=== PATIENT | female | born 1945 | race Hispanic/Latino ===

== ENCOUNTER → 2016-07-07 | Day surgery (SDC) | payer OTHER ==
[~2016-07-07] MED LIST: ANTIVERT 25 MG25 M1 PO; ASPIR 8181 MG PO; CYMBALTA60 MG PO; GABAPENTIN TAB600 MG PO; HYDROXYZINE HCL50 M1 PO; HYZAAR 12.5 MG-1 TAB PO; IBUPROFEN600 M1 PO; JANUMET 1000 MG1 TAB PO; LEVEMIR100 U/ML SC; LEVOTHYROXINE0.1 MG PO; MEDROL4 M2 PO; NATURAL IRON65 MG PO; NOVOLOG100 U/ML SC; OXYCODONE5 MG PO; PERCOCET 325 MG1 TA2 PO; PRAVACHOL80 MG PO; TERBINAFINE HCL30 GM TOP; VALIUM5 M1 PO
--- NOTE | 2016-07-07 09:19 | Operative Report ---
Operative/Inv Procedure Report Surgery Date: 07/07/16 Name of Procedure: Cataract extraction lens implantation left eye Pre-Operative Diagnosis: Age-related cataract left eye 20/25 vision 20/60 glare vision Post-Operative Diagnosis: Same Estimated Blood Loss: none Surgeon/Skidway Worker: TIKI AHUMADA,FREDDIE Cabrera Anesthesia: local monitored anesthesi Complications: None Operative/Procedure Note Note: The patient was brought to the operating room standard monitoring equipment was attached the patient was prepped and draped in the usual fashion for intraocular surgery. A lid speculum was placed to retract the lids. The case was begun by making 2 partial-thickness corneal relaxing incisions at 70. A temporal incision with a 2.4 mm keratome. The eye was stabilized with a Ware ring during this incision. 1 mL of non-preserved lidocaine was introduced into the anterior chamber to provide anesthesia. The anterior chamber was then filled and deepened with viscoelastic. A curvilinear capsulorrhexis was achieved using a 30-gauge needle and is a cystotome and capsulorrhexis was finished using a Utrata forceps. A second or paracentesis incision was made temporally with a 1 mm MVR blade. The lens was then hydrodissected with balanced salt solution and found to be rotatable. The lens was emulsified using phacoemulsification and a modified four-quadrant cracking technique. The residual cortical material was removed using automated irrigation and aspiration and as much of the anterior capsular rim was cleaned as well as possible. The posterior capsule was cleaned first with the automated machine on a low setting and then manually with a Justin squeegee. The capsular bag was deepened with viscoelastic. The lens a Technis 1 22.0 Diopter placed into the bag under direct visualization and rotated so that the haptics were at 12 and 6:00. Viscoelastic was then removed from the eye by flushing it out and then by automated irrigation and aspiration. The eye was pressurized to a normal tone. 1/10 of a cc of vancomycin solution was introduced into the anterior chamber to provide antibiotic prophylaxis. The wounds were sealed by hydrating the stroma adjacent to them and the eye was left at a proper tone after the wounds were checked and found not to be leaking. The lid speculum was removed from the orbit. Antibiotic and steroid drops were placed on the eye and then the eye was shielded. Monitoring equipment was removed from the patient and the patient was removed from the operative suite to the holding area. The patient tolerated the procedure well and will be seen in the office tomorrow.
== END ==
LOC: STS 02:00
DX: H25.9 Unspecified age-related cataract (principal); E11.9 Type 2 diabetes mellitus without complications; Z79.4 Long term (current) use of insulin; E03.9 Hypothyroidism, unspecified; I10 Essential (primary) hypertension
CPT/HCPCS: J2250; V2632

== ENCOUNTER 2016-07-10 22:52 | Emergency (ER) | payer OTHER ==
[~2016-07-10] VITALS: Ht 149.9 cm; Wt 68.0 kg
[~2016-07-10 22:52] MED LIST changes: -IBUPROFEN600 M1 PO
[2016-07-10 22:55] VITALS: BP 140/66
--- NOTE | 2016-07-10 23:15 | ED UPPER/LOWER EXTREMITY COMPL ---
History of Present Illness General Chief Complaint: Hand or Wrist Injury Stated Complaint: "MY HAND" LEFT Source: patient Exam Limitations: no limitations Vital Signs & Intake/Output Vital Signs & Intake/Output Vital Signs Date Time Temp Pulse Resp B/P Pulse O2 O2 Flow FiO2 Ox Delivery Rate 07/10 2316 98 Room Air 07/10 2255 97.8 92 18 140/66 96 Room Air ED Intake and Output 07/11 0000 07/10 1200 Intake Total Output Total Balance Patient 150 lb Weight Allergies Coded Allergies: codeine (Mild, STOMACH PAIN/ N/V 08/12/15) Reconcile Medications Aspirin (Ecotrin) 81 MG TABLET.DR 1 TAB PO DAILY HEART HEALTH (Reported) Diazepam (Valium) 5 MG TABLET 1 TAB PO TID muscle spasms DULOXETINE HCL (Cymbalta) 60 MG CAPSULE.DR 1 CAP PO DAILY DEPRESSION ( Reported) FERROUS SULFATE (IRON) 325 MG (65 MG IRON) TABLET 1 TAB PO DAILY SUPPLEMENT ( Reported) Gabapentin (Gabapentin Tab 600MG) 600 MG TABLET 1 TAB PO 4XDAILY LEG PAIN ( Reported) Hydrochlorothiazide/Losartan (Hyzaar 12.5 MG-100 MG) 1 TAB TAB 1 TAB PO DAILY BP (Reported) Hydroxyzine HCl 50 MG TABLET 1 TAB PO TID PRN PRURITUS Ibuprofen 600 MG TABLET 1 TAB PO TID PRN PAIN with food Insulin Aspart, Recombinant (Novolog) 100 U/ML STEFANI 0 UNITS SC AC GLUCOSE CONTROL (Reported) BLOOD SUGAR # OF UNITS < 80 NONE 80-150 NONE 151-200 4 UNITS 201-250 6 UNITS 251-300 8 UNITS 301-350 10 UNITS 351-400 12 UNITS >400 14 UNITS and call Insulin Detemir (Levemir) 100 U/ML STEFANI 40 UNITS SC QHS DIABETES (Reported) Levothyroxine Sodium 100 MCG TABLET 1 TAB PO DAILY THYROID (Reported) Meclizine (Antivert) 12.5 MG TABLET 1 TAB PO PRN VERTIGO (Reported) Metformin Hydrochloride/Sarah (Janumet 1000 MG-50 MG) 1 TAB TAB 1 TAB PO BID DIABETES (Reported) Methylprednisolone. (Medrol) 4 MG TAB.DS.PK 1 DP PO AD dermatitis 6 on day 1 then reduce by one tablet daily until gone OXYCODONE HCL/ACETAMINOPHEN (Percocet 5-325 MG Tablet) 325 MG/5 MG TAB 1-2 TAB PO Q4-6 PRN PRN PAIN Pravastatin Sodium (Pravachol) 80 MG TAB 1 TAB PO DAILY CHOLESTEROL (Reported ) Terbinafine HCl 30 GM CREAM..G. 1 ADELFO TOP BID TINEA Triage Note: PT STATES THAT SHE SLIPPED THIS AM AND HIT HER L HAND ON THE SINK, COMPLAINS OF PAIN AND SWELLING.TOOK TYLENOL AT HOME Triage Nurses Notes Reviewed? yes Onset: Abrupt Duration: hour(s): Timing: single episode today Severity: mild, moderate Pain/Injury Location: Left: 2nd finger. Method of Injury: direct blow, fall Modifying Factors: Improves With: rest. Worsens With: movement. Associated Symptoms: swelling HPI: 70 year-old woman prior good health presents with pain and swelling in the left second metacarpal phalangeal region. She notes that she had a mechanical fall and fell forward. She landed with her left hand outstretched and felt pain in the left second digit area. She notes no other injury no head trauma. She is otherwise well. Past History Travel History Traveled to [place] past 21 day No Medical History Any Pertinent Medical History? 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 No Review of Systems Review of Systems Constitutional: Reports: no symptoms. EENTM: Reports: no symptoms. Respiratory: Reports: no symptoms. Cardiovascular: Reports: no symptoms. Gastrointestinal/Abdominal: Reports: no symptoms. Genitourinary: Reports: no symptoms. Musculoskeletal: Reports: no symptoms. Skin: Reports: no symptoms. Neurological/Psychological: Reports: no symptoms. Hematologic/Endocrine: Reports: no symptoms. Immunological: Reports: no symptoms. All Other Systems: Reviewed and Negative Physical Exam Physical Exam General Appearance: well developed/nourished, mild distress Head: atraumatic Eyes: Bilateral: normal appearance. Ears, Nose, Throat: normal pharynx, normal ENT inspection, hearing grossly normal Neck: normal inspection, supple Cardiovascular/Respiratory: regular rate/rhythm Back: normal inspection Hand Left: swelling, 2nd finger, pain with range of motion in the left second digit. No deformity. Light touch and distal pulses intact. Skin: intact, normal color, warm/dry Lymphatic: no anterior cervical lesa Progress Differential Diagnosis: contusion, fracture, sprain Plan of Care: Orders Procedure Date/time Status XRY-HAND, 3 View LEFT 07/10 2257 Active Diagnostic Imaging: Viewed by Me: Radiology Read. Discussed w/RAD: Radiology Read. Radiology Impression: hand xray... 2nd phalanx fracture... full report below. Comments: PATIENT: DEWEY PEREZ PRESENT AGE: 70 PATIENT ACCOUNT NO: [id number] : 45 LOCATION: [facility] ORDERING PHYSICIAN: ALFREDO BEASLEY DO SERVICE DATE: 07/10/16-2257 EXAM TYPE: RAD - XRY-HAND, LEFT EXAMINATION: 3 views of the left hand CLINICAL INFORMATION: Hand pain and swelling COMPARISON: None available FINDINGS: There is a nondisplaced intra-articular fracture along the ulnar aspect of the proximal second phalanx. No additional acute fractures. No acute subluxations. No elevation of the pronator fat pad. Joint space narrowing involving all the distal interphalangeal joints as well as the proximal fourth interphalangeal joint. IMPRESSION: - There is a nondisplaced intra-articular fracture along the ulnar aspect of the proximal second phalanx. No additional acute fractures. - Osteoarthritis. DICTATED BY: ALFREDO FONTANA MD DATE/TIME DICTATED:07/10/162335 GLOVE CUFFER:RUPESH DATE/TIME TRANSCRIBED:07/10/162335 CONFIDENTIAL, DO NOT COPY WITHOUT APPROPRIATE AUTHORIZATION. <Electronically signed in Other Vendor System> SIGNED BY: ALFREDO FONTANA MD 07/10/16 5920 Departure Departure Disposition: HOME OR SELF CARE Condition: Stable Clinical Impression Primary Impression: Finger fracture Referrals: CROW SAWYER MD (PCP/Family) Departure Forms: Customer Survey General Discharge Information Prescriptions: Current Visit Scripts Ibuprofen 1 TAB PO TID PRN PAIN #30 TAB with food Comments splint placed on affected finger by . Procedures Splinting Location: 2nd left finger Manual Alignment Performed: No Pre-Made Type: metal Splint: finger Splint Applied By: splint applied by me Pre-Proc Neuro Vasc Exam: normal Post-Proc Neuro Vasc Exam: normal
--- NOTE | 2016-07-10 23:47 | RADIOLOGY REPORT ---
EXAMINATION: 3 views of the left hand CLINICAL INFORMATION: Hand pain and swelling COMPARISON: None available FINDINGS: There is a nondisplaced intra-articular fracture along the ulnar aspect of the proximal second phalanx. No additional acute fractures. No acute subluxations. No elevation of the pronator fat pad. Joint space narrowing involving all the distal interphalangeal joints as well as the proximal fourth interphalangeal joint. IMPRESSION: - There is a nondisplaced intra-articular fracture along the ulnar aspect of the proximal second phalanx. No additional acute fractures. - Osteoarthritis.
[2016-07-11] MEDS ORDERED: IBUPROFEN600 M1 PO (00:17)
== END 2016-07-11 00:29 ==
LOC: ERH 22:52
DX: S62.611A Displaced fracture of proximal phalanx of left index finger, initial encounter for closed fracture (principal); W22.8XXA Striking against or struck by other objects, initial encounter
CPT/HCPCS: 73130-LT

== ENCOUNTER 2017-12-09 21:29 | Observation (INO) | payer OTHER ==
[~2017-12-09] VITALS: Ht 162.6 cm; Wt 73.1 kg
[~2017-12-09 21:29] MED LIST changes: +IBUPROFEN600 M1 PO; +TRAMADOL HCL50 M1 PO
--- NOTE | 2017-12-09 21:54 | ED CARDIAC/CP/PALPITATIONS ---
History of Present Illness General Chief Complaint: Lower Extremity Problems Stated Complaint: PAIN AND SWELLING IN LEGS AND FEET X3 DAYS Source: patient Exam Limitations: no limitations Vital Signs & Intake/Output Vital Signs & Intake/Output Vital Signs Date Time Temp Pulse Resp B/P B/P Pulse O2 O2 Flow FiO2 Mean Ox Delivery Rate 12/10 0107 97 18 124/56 97 Nasal 2.0L Cannula 12/10 0102 112 155/72 12/09 2352 98.2 114 20 155/72 96 Room Air 12/09 2255 118 18 145/69 97 Room Air 12/09 2245 116 18 153/70 98 Room Air 12/09 2237 98.3 112 18 138/66 98 Room Air 12/09 2159 98 Room Air 12/09 2158 111 16 140/71 94 Room Air 12/09 2135 98.3 121 20 165/77 96 Room Air ED Intake and Output 12/10 0000 12/09 1200 Intake Total Output Total Balance Patient 230 lb Weight Weight Reported by Patient Measurement Method Allergies Coded Allergies: codeine (Mild, STOMACH PAIN/ N/V 04/06/17) Triage Note: PT HERE WITH C/O INCREASING BLOOD SUGARS, LLE SWEELING AND PALPATATIONS. Triage Nurses Notes Reviewed? yes Onset: Gradual Duration: constant Timing: recent history Location: substernal Radiation: no radiation HPI: Patient is a 72-year-old female with past medical history of cervical spine fusion, diabetes, hypothyroidism, hypertension, hyperlipidemia patient's surgery assistant Dr. Winters who presents emergency room with a 24-hour history of gradual onset of bilateral leg swelling shortness of breath dyspnea on exertion chest pressure dizziness mild nausea Patient is also complaining of yellow productive cough Patient is also complaining of chest heaviness (Timo Feng) Reconcile Medications Amlodipine Besylate 10 MG TABLET 1 TAB PO DAILY HTN (Reported) Aspirin (Aspirin*) 81 MG TAB.CHEW 1 TAB PO DAILY Heart (Reported) Atorvastatin Calcium 20 MG TABLET 1 TAB PO DAILY HLD (Reported) Calcium Crb&Cit/D3/Min34/Mary (Citracal + Bone Density Tablet) 300 MG-200 UNIT- 13.5 MG TABLET 1 TAB PO DAILY SUPPLEMENT (Reported) Cyanocobalamin (Vitamin B-12) 1,000 MCG TABLET 1 TAB PO DAILY SUPPLEMENT ( Reported) Duloxetine HCl 60 [address]SULE.DR Ramirez CAP PO DAILY Depression (Reported) Ferrous Sulfate 325 MG (65 MG IRON) TABLET 1 TAB PO DAILY SUPPLEMENT ( Reported) Fish Oil/Borage/Flax/Om3,6,9#1 ([place] 3-6-9 1,200 MG Softgel) 1,200 MG CAPSULE 1 CAP PO DAILY SUPPLEMENT (Reported) Furosemide 20 MG TABLET 1 TAB PO DAILY SWELLING (Reported) Insulin Detemir (Levemir) (Unknown Strength) VIAL (Unknown Dose) SC BID IDDM (Reported) Insulin Lispro (Humalog Kwikpen U-100) (Unknown Strength) INSULN.PEN (Unknown Dose) SC TIDAC IDDM (Reported) Lactobacillus Acidophilus (Probiotic) 10 BILLION CELL CAPSULE 1 CAP PO TID SUPPLEMENT (Reported) Levothyroxine Sodium (Synthroid) 100 MCG TABLET 1 TAB PO DAILY HYPOTHYROIDISM (Reported) Linaclotide (Linzess) 145 MCG CAPSULE 1 CAP PO DAILY GI (Reported) Magnesium Oxide (Magnesium) 400 MG CAPSULE 1 CAP PO DAILY SUPPLEMENT ( Reported) Meclizine HCl 25 MG TABLET 1 TAB PO BID VERTIGO (Reported) Melatonin 5 MG TABLET 1 TAB PO QPM SLEEP (Reported) Nystatin 100,000 UNIT/GRAM POWDER 1 ADELFO TOP BID RASH (Reported) Potassium Chloride 20 MEQ TAB.ER.PRT 1 TAB PO DAILY SUPPLEMENT (Reported) Pregabalin (Lyrica) 100 MG CAPSULE 1 CAP PO BID Neuropathy (Reported) Ranitidine HCl 300 MG TABLET 1 TAB PO QPM GERD (Reported) Sitagliptin Phos/Metformin HCl (Janumet 50-1,000 MG Tablet) 50 MG-1,000 MG TABLET 1 TAB PO BID IDDM (Reported) (Jose Huerta MD) Past History Travel History Traveled to [place] past 21 day No Medical History Any Pertinent Medical History? see below for history Neurological: migraine, vertigo EENT: NONE Cardiovascular: hypertension Respiratory: obstructive sleep apnea Gastrointestinal: NONE Hepatic: NONE Renal: NONE Musculoskeletal: chronic back pain, disk herniation, CERVICAL SPINE SPURS Psychiatric: depression Endocrine: DIABETES Blood Disorders: NONE Cancer(s): NONE MANAGER SYSTEM/Reproductive: Surgical History Surgical History: discectomy and fusion Psychosocial History Who do you live with Spouse Services at Home None What is your primary language Macedonian Tobacco Use: Never used ETOH Use: denies use Illicit Drug Use: denies illicit drug use Family History Family History, If Any: Relation not specified for: No pertinent family history Hx Contributory? No (Timo Feng) Review of Systems Review of Systems Constitutional: Reports: no symptoms. EENTM: Reports: no symptoms. Respiratory: Reports: see HPI. Cardiovascular: Reports: see HPI. GI: Reports: no symptoms. Genitourinary: Reports: no symptoms. Musculoskeletal: Reports: no symptoms. Skin: Reports: no symptoms. Neurological/Psychological: Reports: no symptoms. Hematologic/Endocrine: Reports: no symptoms. Immunologic/Allergic: Reports: no symptoms. All Other Systems: Reviewed and Negative (Timo Feng) Physical Exam Physical Exam General Appearance: no apparent distress, alert, comfortable Head: atraumatic Eyes: Bilateral: normal appearance. Ears, Nose, Throat: hearing grossly normal Neck: normal inspection Respiratory: normal breath sounds, chest non-tender, no respiratory distress Cardiovascular: tachycardia Peripheral Pulses: 2+ dorsalis pedis (R), 2+ dorsalis pedis (L) Gastrointestinal: normal bowel sounds, soft, tenderness Neurologic/Psych: no motor/sensory deficits, awake, alert Skin: intact, normal color, warm/dry Comments: Bilateral lower extremity nonpitting +1 edema with gastrocnemius point tenderness Core Measures ACS in differential dx? Yes CVA/TIA Diagnosis No Sepsis Present: No Sepsis Focused Exam Completed? No (Timo Feng) Progress Differential Diagnosis: AMI, aortic dissection, atrial fibrillation, cholecystitis, CHF/pulm edema, costochondritis, hyperkalemia, hypovolemia, hyperthyroid, hyperventilation, intracranial hemorrhage, musculoskeletal pain, myocarditis, pancreatitis, pericarditis, pneumonia, pneumothorax, PSVT, pulmonary embolism, PUD/GERD, PVCs/PACs, respiratory failure, rib fracture, sepsis, unstable angina, V-fib/V-Tach, WPW syndrome Plan of Care: Orders Procedure Date/time Status Heart Healthy Diet 12/10 B Active TROPONIN LEVEL 12/10 1000 Active EKG 12/10 1000 Active ECHOCARDIOGRAM 12/10 0800 Active TROPONIN LEVEL 12/10 0400 Active MAGNESIUM 12/10 0400 Active CBC WITHOUT DIFFERENTIAL 12/10 0400 Active BASIC ELECTROLYTES PLUS BUN&CR 12/10 0400 Active EKG 12/10 0400 Active TRC EVALUATION (GEN) 12/10 0232 Active OXYGEN SETUP (GEN) 12/10 0232 Active Pathway - chart 12/10 0232 Active House Staff 12/10 0232 Active Patient Data 12/10 0129 Active OXYGEN SETUP (GEN) 12/10 003 Active Saline Lock 12/[address] in observation 12/10 003 Active Vital Signs 12/10 29 Active Activity/Ambulation 12/10 29 Active Code Status 12/10 29 Active URINALYSIS 12/10 0010 Complete VTE Mechanical Prophylaxis 12/10 UNK Active Telemetry/Medical Insurance Biller 12/09 2152 Active FingerStick- Glucose 12/09 2152 Active THYROID STIMULATING HORMONE 12/09 2152 Complete TROPONIN LEVEL 12/09 2152 Complete FREE T4 12/09 2152 Complete D-DIMER 12/09 2152 Complete COMPREHENSIVE METABOLIC PANEL 12/09 2152 Complete CBC WITHOUT DIFFERENTIAL 12/09 2152 Complete B-TYPE NATRIURETIC PEP (BNP) 12/09 2152 Complete Intake & Output 12/09 2148 Active EKG 12/10 2131 Active Current Medications Sig/Amanda Start time Last Medication Dose Stop Time Status Admin Enoxaparin Sodium 40 MG DAILY 12/10 0900 UNVr (Lovenox) Omeprazole 40 MG DAILY AC 12/10 0700 UNVr (Prilosec) Acetaminophen 650 MG Q6P PRN 12/10 0230 UNVr (Tylenol) Laboratory Tests 12/10/17 0013: Urine Color STRAW, Urine Clarity CLEAR, Urine pH 6.0, Ur Specific [place] <= 1.005, Urine Protein NEG, Urine Ketones NEG, Urine Nitrite NEG, Urine Bilirubin NEG, Urine Urobilinogen 0.2, Ur Leukocyte Esterase NEG, Ur Microscopic EXAM NOT REQUIRED, Urine Hemoglobin NEG, Urine Glucose NEG 12/09/17 2204: Anion Gap 16, Estimated GFR > 60, BUN/Creatinine Ratio 22.5, Glucose 251 H, Calcium 9.0, Total Bilirubin 0.3, AST 60 H, ALT 68 H, Alkaline Phosphatase 154 H, Troponin I < 0.01, Had-E-Kovjwvvebrm Pept 38.3, Total Protein 7.4, Albumin 4.3, Globulin 3.1, Albumin/Globulin Ratio 1.4, TSH 0.696, Free T4 1.30, D-Dimer High Sensitivty 261 H, CBC w Diff NO MAN DIFF REQ, RBC 4.15 L, MCV 87.3, MCH 28.9, MCHC 33.2, RDW 16.0 H, MPV 10.9 H, Gran % 65.0, Lymphocytes % 26.4, Monocytes % 5.9, Eosinophils % 2.4, Basophils % 0.3, Absolute Granulocytes 7.9 H, Absolute Lymphocytes 3.2, Absolute Monocytes 0.7 H, Absolute Eosinophils 0.3 , Absolute Basophils 0 Patient on initial presentation was noted to be tachycardic, patient was complaining of substernal chest heaviness aspirin was administered along with nitroglycerin Patient's chest pressure and heaviness was improved from a 6 to a 2 pain after the first nitroglycerin a second nitroglycerin tablets administered patient was prophylactically given aspirin Due to patient's persistent tachycardia and relieve chest pain upon nitroglycerin being administered telemetry observation was warranted Patient had complete resolution of pain after nitroglycerin was administered discussed observation with case management who agrees Discussed observation with patient and family member who agree Dr. Winters is aware patient's clinical presentation CT angiogram shows no convincing evidence of pulmonary embolism It is noted that patient has hydronephrosis however no active kidney stone is noted Diagnostic Imaging: Viewed by Me: CT Scan. Radiology Impression: no acute abnormality Initial ED EKG: SINUS TACHYCARDIA 116 BPM Comments: PATIENT: DEWEY PEREZ PRESENT AGE: 72 PATIENT ACCOUNT NO: [id number] : 45 LOCATION: [facility] ORDERING PHYSICIAN: Timo PINEDA SERVICE DATE: 12/09/17 EXAM TYPE: CAT - CT ABD & PELVIS W IV CONTRAST; CTA CHEST-PULMONARY EMBOLISM EXAMINATIONS: CT PULMONARY EMBOLISM STUDY AND CT ABDOMEN AND PELVIS WITH CONTRAST CLINICAL INFORMATION: Shortness of breath. Swelling. Abdominal pain. COMPARISON: None. TECHNIQUE: Contiguous helical images of the chest were obtained following the administration of IV contrast. Multiplanar reconstructions were performed. MIPS were obtained and reviewed. Contiguous axial thin section helical images of the abdomen and pelvis were performed following the administration of 95 mL of intravenous Optiray 320. The data set was reformatted in the coronal and sagittal planes and reviewed on an independent workstation. DLP: 1152 mGy-cm. FINDINGS: The heart is of normal size. There is no pericardial effusion. The great vessels are unremarkable. Specifically, there is no pulmonary arterial filling defect. There is no CT evidence for pulmonary embolism. There are no chest wall masses. Review of lung windows demonstrates that there are neither pleural effusions nor pneumothoraces. There is mild dependent bibasilar atelectasis. There is medial segment right middle lobe and inferior segment lingular atelectasis. There are no consolidations. There are no pulmonary parenchymal nodules. The liver is of normal size and mild diffuse decreased attenuation without focal lesions nor intrahepatic biliary ductal dilation. Patient status post cholecystectomy. Surgical clips are identified. The spleen, pancreas, adrenal glands are unremarkable. Both kidneys are of normal size and attenuation without nephrolithiasis. There is right grade 1 hydroureteronephrosis. There are several phleboliths within the right hemipelvis, though no definite obstructive calculi. There is an 11 mm low-attenuation lesion within the upper pole of the right kidney. This is too small to fully characterize, though likely represents a cyst. Following the administration of IV contrast, prompt symmetric nephrograms are displayed. There is no abdominal free fluid. There is neither mesenteric nor retroperitoneal lymphadenopathy. There is sigmoid diverticulosis without evidence of diverticulitis. Otherwise, unremarkable unopacified loops of small and large bowel are identified. There is no pelvic free fluid. The urinary bladder is unremarkable. There is neither pelvic nor inguinal lymphadenopathy. Bone windows: Neither sclerotic nor lytic bone lesions are identified. Partially visualized is intact cervical spine fusion hardware. IMPRESSION: No CT evidence for pulmonary embolism. Mild multifocal atelectasis. No consolidations. Mild manifestations of hepatic steatosis. Status post cholecystectomy. Right grade 1 hydronephrosis without a demonstrable obstructive calculus. There are several pelvic phleboliths. Sigmoid diverticulosis without evidence of diverticulitis. DICTATED BY: Bang Vazquez MD DATE/TIME DICTATED:12/09/172352 RESEARCH QUALITY ASSURANCE ANALYST:RUPESH DATE/TIME TRANSCRIBED:12/09/172352 CONFIDENTIAL, DO NOT COPY WITHOUT APPROPRIATE AUTHORIZATION. <Electronically signed in Other Vendor System> SIGNED BY: Bang Vazquez MD 12/10/17 0004 PATIENT: DEWEY PEREZ PRESENT AGE: 72 PATIENT ACCOUNT NO: [id number] : 45 LOCATION: [facility] ORDERING PHYSICIAN: Timo PINEDA SERVICE DATE: 12/09/17 EXAM TYPE: RAD - XRY-PORTABLE CHEST XRAY EXAMINATION: XR PORTABLE CHEST CLINICAL INFORMATION: Shortness of breath COMPARISON: Frontal portable view 12/21/14 TECHNIQUE: Portable frontal view of the chest was obtained. FINDINGS: Monitoring devices overlie the patient. There is faint calcification of the aortic arch. The cardiac size is within normal limits with a left ventricular configuration. The central vessels are mildly prominent but there is no peripheral edema. There is some crowding of markings at the right base medially. No consolidation in the left lung or right upper lung. No pneumothorax or pleural fluid. Evidence of lower cervical instrumentation. Suspect chronic rotator cuff disease on the right IMPRESSION: Hypoinflation with some chronic right base markings. This is similar to 2015. No alveolar edema or dense pneumonia DICTATED BY: Juve Mehta MD DATE/TIME DICTATED:12/09/172224 RESEARCH QUALITY ASSURANCE ANALYST:RUPESH DATE/TIME TRANSCRIBED:12/09/172224 (Timo Feng) Departure Departure Disposition: STILL A PATIENT Condition: Stable Clinical Impression Primary Impression: Angina at rest Secondary Impressions: Hydronephrosis, Tachycardia Referrals: Ludy AHUMADA,Remy Carpio (PCP/Family) Departure Forms: Customer Survey General Discharge Information Observation Note Spoke With: Ashlyn Mccall MD Physician Advisor Notified: MILANA AHUMADA,YARIEL Anaya Place Patient In: Non-ED OBS Care Area Rationale for Observation: My rational for observation is as follows [patient requires IV fluids, repeat labs, repeat EKG repeat troponin cardiology consultation, IV Lopressor for continued tachycardia]. (Timo Feng) PA/BUILDING CONSTRUCTION IRONWORKER Co-Sign Statement Statement: ED Attending supervision documentation- I saw and evaluated the patient. I have also reviewed all the pertinent lab results and diagnostic results. I agree with the findings and the plan of care as documented in the PA's/BUILDING CONSTRUCTION IRONWORKER's documentation. CP, palpitations relieved with NTG [] I have reviewed the ED Record and agree with the PA's/BUILDING CONSTRUCTION IRONWORKER's documentation. [] Additions or exceptions (if any) to the PAs/BUILDING CONSTRUCTION IRONWORKER's note and plan are summarized below: [] (Bradley AHUMADA,Jose) Critical Care Note Critical Care Note Critical Care Time: non-applicable (Timo Feng)
[2017-12-09 22:13] LABS: ABSOLUTE BASOPHIL COUNT 0 /CUMM (0.0-0.2); ABSOLUTE EOSINOPHIL COUNT 0.3 /CUMM (0.0-0.7); ABSOLUTE GRANULOCYTE CT 7.9 /CUMM (1.4-6.5); ABSOLUTE LYMPH COUNT 3.2 /CUMM (1.2-3.4); ABSOLUTE MONOCYTE COUNT 0.7 /CUMM (0.10-0.60); BASOPHIL % 0.3 % (0.0-2.0); EOSINOPHIL % 2.4 % (0-5); HEMATOCRIT 36.2 % (37-47); MEAN CORPUSCULAR HGB 28.9 PG (27.0-31.0); MEAN CORPUSCULAR HGB CONC 33.2 G/DL (33.0-37.0); MEAN CORPUSCULAR VOLUME 87.3 FL (81.0-99.0); MEAN PLATELET VOLUME 10.9 FL (7.4-10.4); PLATELET COUNT 238 /CUMM (130-400); RED BLOOD CELL CT 4.15 /CUMM (4.20-5.40); WHITE BLOOD CELL COUNT 12.2 /CUMM (4.8-10.8)
--- NOTE | 2017-12-09 22:30 | RADIOLOGY REPORT ---
EXAMINATION: XR PORTABLE CHEST CLINICAL INFORMATION: Shortness of breath COMPARISON: Frontal portable view 12/21/14 TECHNIQUE: Portable frontal view of the chest was obtained. FINDINGS: Monitoring devices overlie the patient. There is faint calcification of the aortic arch. The cardiac size is within normal limits with a left ventricular configuration. The central vessels are mildly prominent but there is no peripheral edema. There is some crowding of markings at the right base medially. No consolidation in the left lung or right upper lung. No pneumothorax or pleural fluid. Evidence of lower cervical instrumentation. Suspect chronic rotator cuff disease on the right IMPRESSION: Hypoinflation with some chronic right base markings. This is similar to 2015. No alveolar edema or dense pneumonia
--- NOTE | 2017-12-10 00:04 | CT SCAN REPORT ---
EXAMINATIONS: CT PULMONARY EMBOLISM STUDY AND CT ABDOMEN AND PELVIS WITH CONTRAST CLINICAL INFORMATION: Shortness of breath. Swelling. Abdominal pain. COMPARISON: None. TECHNIQUE: Contiguous helical images of the chest were obtained following the administration of IV contrast. Multiplanar reconstructions were performed. MIPS were obtained and reviewed. Contiguous axial thin section helical images of the abdomen and pelvis were performed following the administration of 95 mL of intravenous Optiray 320. The data set was reformatted in the coronal and sagittal planes and reviewed on an independent workstation. DLP: 1152 mGy-cm. FINDINGS: The heart is of normal size. There is no pericardial effusion. The great vessels are unremarkable. Specifically, there is no pulmonary arterial filling defect. There is no CT evidence for pulmonary embolism. There are no chest wall masses. Review of lung windows demonstrates that there are neither pleural effusions nor pneumothoraces. There is mild dependent bibasilar atelectasis. There is medial segment right middle lobe and inferior segment lingular atelectasis. There are no consolidations. There are no pulmonary parenchymal nodules. The liver is of normal size and mild diffuse decreased attenuation without focal lesions nor intrahepatic biliary ductal dilation. Patient status post cholecystectomy. Surgical clips are identified. The spleen, pancreas, adrenal glands are unremarkable. Both kidneys are of normal size and attenuation without nephrolithiasis. There is right grade 1 hydroureteronephrosis. There are several phleboliths within the right hemipelvis, though no definite obstructive calculi. There is an 11 mm low-attenuation lesion within the upper pole of the right kidney. This is too small to fully characterize, though likely represents a cyst. Following the administration of IV contrast, prompt symmetric nephrograms are displayed. There is no abdominal free fluid. There is neither mesenteric nor retroperitoneal lymphadenopathy. There is sigmoid diverticulosis without evidence of diverticulitis. Otherwise, unremarkable unopacified loops of small and large bowel are identified. There is no pelvic free fluid. The urinary bladder is unremarkable. There is neither pelvic nor inguinal lymphadenopathy. Bone windows: Neither sclerotic nor lytic bone lesions are identified. Partially visualized is intact cervical spine fusion hardware. IMPRESSION: No CT evidence for pulmonary embolism. Mild multifocal atelectasis. No consolidations. Mild manifestations of hepatic steatosis. Status post cholecystectomy. Right grade 1 hydronephrosis without a demonstrable obstructive calculus. There are several pelvic phleboliths. Sigmoid diverticulosis without evidence of diverticulitis.
[2017-12-10] MEDS ORDERED: LEVEMIR100 UNIT/1 SC (01:43)
[2017-12-10] MEDS ORDERED: JANUMET 50-1,01 EACH PO (01:44)
[2017-12-10] MEDS ORDERED: LYRICA100 M1 PO (01:44)
[2017-12-10] MEDS ORDERED: RANITIDINE HCL300 M1 PO (01:44)
[2017-12-10] MEDS ORDERED: HUMALOG KW100 UNIT/1 SC (01:44)
[2017-12-10] MEDS ORDERED: AMLODIPINE BESY10 M1 PO (01:45)
[2017-12-10] MEDS ORDERED: MECLIZINE HCL25 MG PO (01:45)
[2017-12-10] MEDS ORDERED: DULOXETINE HCL60 MG PO (01:45)
[2017-12-10] MEDS ORDERED: FUROSEMIDE20 M1 PO ×2 (01:46)
[2017-12-10] MEDS ORDERED: ATORVASTATIN CA20 M1 PO (01:47)
[2017-12-10] MEDS ORDERED: ASPIRIN81 M4 PO (01:47)
[2017-12-10] MEDS ORDERED: VITAMIN B-121000 MC3 PO (01:47)
[2017-12-10] MEDS ORDERED: CITRACAL + BON1 EACH PO (01:48)
[2017-12-10] MEDS ORDERED: POTASSIUM CHLO20 ME2 PO (01:48)
[2017-12-10] MEDS ORDERED: OMEGA 3-6-9 11200 MG PO (01:51)
[2017-12-10] MEDS ORDERED: MAGNESIUM400 M1 PO (01:51)
[2017-12-10] MEDS ORDERED: MELATONIN5 M7 PO (01:52)
[2017-12-10] MEDS ORDERED: PROBIOTIC1 EACH PO (01:52)
[2017-12-10] MEDS ORDERED: FERROUS SULFAT325 M3 PO (01:53)
[2017-12-10] MEDS ORDERED: NYSTATIN15 G2 TOP (01:53)
[2017-12-10] MEDS ORDERED: SYNTHROID100 MCG PO (01:54)
[2017-12-10] MEDS ORDERED: LINZESS145 MC1 PO (01:55)
--- NOTE | 2017-12-10 02:03 | History & Physical ---
[place] 12/10/17 0159: General Information and HPI MD Statement: I have seen and personally examined DEWEY PEREZ and documented this H&P. The patient is a 72 year old F who presented with a patient stated chief complaint of chest pain, shortness of breath, cough with sputum and bilateral leg swelling []. Source of Information: patient, family, old records Exam Limitations: language barrier History of Present Illness: 72 YO F, obese, Guatemalan speaking, former smoker (quit 43 yrs back) with PMH of HTN, DM, vertigo, THEE, chronic back pain, depression, migraine, GERD, disk herniation and vertebral fusion came to ED with chief complaint of chest pain since this morning, shortness of breath, productive cough, bilateral leg swelling for last 3 days. Patient is Guatemalan-speaking and her daughter and were on the bedside who helped us to get information. According to the patient this morning she was complaining the house than she suddenly noticed anything central chest pain, pressure-like, nonradiating, aggravated with exertion and relieved with nitroglycerin associated with palpitations. Patient also reported that she is feeling exertional dyspnea, productive cough and bilateral leg swelling for last 3 days. According to patient whenever she goes up or down on the stairs she is feeling more short of breath. Her short of breath is progressively worsening and her bilateral leg swelling is also worsening. Patient reported that she is having productive cough, yellow colored sputum, nonbloody and [id number]. Patient denied fever, chills, nausea, vomiting, abdominal pain, sweating, headache, blurry vision, hematemesis, hematochezia, blood and sputum, rash, seizures, dizziness, loss of consciousness and dysuria. Patient reported that she is following Dr. Winters and she had cardiac stress test 1 year back that was normal. Her last echocardiogram was done in September 2013 that showed ejection fraction more than 60% with stage II diastolic heart failure, mild left ventricular hypertrophy. Patient had endoscope patient 2 years back for GERD. According to the patient she never had any chest pain or SD in the past and never been diagnosed with heart failure. ED course: Vitals: Temperature 98.3, pulse 121, respiratory rate 20, blood pressure 165/77, oxygen saturation 96% on room air Labs: WBC count 12.2, hemoglobin 12.0, hematocrit 36.2, platelet count 238, sodium 139, potassium 3.8, BUN 18, creatinine 0.8, glucose 251, BU and/ creatinine ratio 22.5, anion gap 16, AST 60, ALT 68, troponin less than 0.01, proBNP 38.3 Allergies/Medications Allergies: Coded Allergies: codeine (Mild, STOMACH PAIN/ N/V 04/06/17) Past History Travel History Traveled to [place] past 21 day No Medical History Neurological: migraine, vertigo EENT: NONE Cardiovascular: hypertension Respiratory: obstructive sleep apnea Gastrointestinal: NONE Hepatic: NONE Renal: NONE Musculoskeletal: chronic back pain, disk herniation, CERVICAL SPINE SPURS Psychiatric: depression Endocrine: DIABETES Blood Disorders: NONE Cancer(s): 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 EENTM: Reports: no symptoms. Cardiovascular: Reports: chest pain, edema, palpitations. Denies: syncope. Respiratory: Reports: cough, short of breath, sputum production. Denies: wheezing. GI: Denies: abdominal pain, constipation, diarrhea, nausea, vomiting. Genitourinary: Denies: discharge, frequency, hematuria, pain. Musculoskeletal: Reports: back pain. Skin: Reports: no symptoms. Neurological/Psychological: Reports: no symptoms. Hematologic/Endocrine: Reports: no symptoms. Exam & Diagnostic Data Last 24 Hrs of Vital Signs/I&O Vital Signs Date Time Temp Pulse Resp B/P B/P Pulse O2 O2 Flow FiO2 Mean Ox Delivery Rate 12/10 0107 97 18 124/56 97 Nasal 2.0L Cannula 12/10 010 112 155/72 12/09 2352 98.2 114 20 155/72 96 Room Air 12/09 2255 118 18 145/69 97 Room Air 12/09 2245 116 18 153/70 98 Room Air 12/097 98.3 112 18 138/66 98 Room Air 12/099 98 Room Air 12/09 2157 111 16 140/71 94 Room Air 12/095 98.3 121 20 165/77 96 Room Air Intake & Output 12/10 0800 12/10 0000 12/09 1600 Intake Total 1000 Output Total Balance 1000 Intake, IV 1000 Patient 230 lb Weight Weight Reported by Patient Measurement Method Physical Exam General Appearance Alert, Oriented X3, Cooperative, No Acute Distress Skin No Rashes Skin Temp/Moisture Exam: Warm/Dry Sepsis Skin Exam (color): Normal for Ethnicity HEENT Atraumatic, PERRLA, EOMI Neck Supple Cardiovascular Normal S1, Normal S2 Lungs Clear to Auscultation, Normal Air Movement Abdomen Soft, No Tenderness, SCAR BUSTOS FROM PREVIOUS SURGERIES. Neurological Normal Speech, Strength at 5/5 X4 Ext, Normal Tone, Sensation Intact Extremities B/L PEDAL EDEMA, b/l reticular veins Assessment/Plan Assessment: 72 YO F, obese, Guatemalan speaking, former smoker (quit 43 yrs back) with PMH of HTN, DM, vertigo, THEE, chronic back pain, depression, migraine, GERD, disk herniation and vertebral fusion came to ED with chief complaint of chest pain since this morning, shortness of breath, productive cough, bilateral leg swelling for last 3 days. We will keep the patient under observation on telemetry floor. Chest pain: -Considering patient's risk factors of diabetes, hypertension and her history of chest pain during exertion relieved with nitroglycerin we will keep the patient under observation on telemetry floor to rule out ACS. -Serial troponin EKG to rule out acute cardiac ischemic injury -Continue aspirin -Cardiac consultation in a.m. -Echocardiogram in a.m. Sinus tachycardia: -On admission patient was found to have sinus tachycardia with heart rate 121 although her chest CTA is negative for PE. -Possibly due to anxiety -We will monitor the patient on telemetry floor for any EKG changes or pauses or arrhythmias. Possible bronchitis: -Patient is complaining of productive cough possibly due to bronchitis has and extremities were negative for any pneumonia and patient is afebrile -Patient's leukocytosis could be due to her bronchitis -We will follow her WBC count of the patient is afebrile. History of GERD: -Patient had upper GI endoscopy 2 years back for GERD, possibly patient could has esophageal spasm that was relieved with nitroglycerin. Patient could have GERD that can cause her chest pain. -Continue omeprazole History of hypertension and hyperlipidemia: -Hydrochlorothiazide and losartan -Continue Lipitor History of diabetes: -Accu-Cheks -HbA1c -Insulin NovoLog according to sliding scale -We will confirm her Levemir dose by calling her pharmacy in a.m. History of bilateral leg swelling: -Could be due to chronic venous changes considering her bilateral reticular veins or due to obesity. Worsening diastolic heart failure could not be ruled out. We will get echocardiogram as her last echocardiogram was done in 2013 that showed stage II diastolic heart failure. -Continue Lasix -Bilateral leg elevation to decrease the swelling -Continue gabapentin for bilateral leg pain. History of depression: -Continue Cymbalta DVT prophylaxis: Mechanical and subcutaneous heparin CODE STATUS: Full code As Ranked By This Provider Problem List: 1. Tachycardia 2. Chest pain 3. Bronchitis Core Measures/Misc (02/28) Acute Coronary Syndrome ACS Diagnosis: No Congestive Heart Failure Congestive Heart Failure Diagnosis No Cerebrovascular Accident CVA/TIA Diagnosis: No VTE (View Protocol) VTE Risk Factors Age>40 No Mechanical VTE Prophylaxis d/t N/A MechProphylax Ordered No VTE Pharm Prophylaxis d/t NA PharmProphylax ordered Sepsis (View protocol) Sepsis Present: No If YES complete Sepsis Event Note If YES complete Sepsis Event Note Alvino Sullivan MD 12/10/17 0239: General Information and HPI Allergies/Medications Home Med list Amlodipine Besylate 10 MG TABLET 1 TAB PO DAILY HTN (Reported) Aspirin (Aspirin*) 81 MG TAB.CHEW 1 TAB PO DAILY Heart (Reported) Atorvastatin Calcium 20 MG TABLET 1 TAB PO DAILY HLD (Reported) Calcium Crb&Cit/D3/Min34/Mary (Citracal + Bone Density Tablet) 300 MG-200 UNIT- 13.5 MG TABLET 1 TAB PO DAILY SUPPLEMENT (Reported) Cyanocobalamin (Vitamin B-12) 1,000 MCG TABLET 1 TAB PO DAILY SUPPLEMENT ( Reported) Duloxetine HCl 60 MG CAPSULE.DR 1 CAP PO DAILY Depression (Reported) Ferrous Sulfate 325 MG (65 MG IRON) TABLET 1 TAB PO DAILY SUPPLEMENT ( Reported) Fish Oil/Borage/Flax/Om3,6,9#1 ([place] 3-6-9 1,200 MG Softgel) 1,200 MG CAPSULE 1 CAP PO DAILY SUPPLEMENT (Reported) Furosemide 20 MG TABLET 1 TAB PO DAILY SWELLING (Reported) Insulin Detemir (Levemir) (Unknown Strength) VIAL (Unknown Dose) SC BID IDDM (Reported) Insulin Lispro (Humalog Kwikpen U-100) (Unknown Strength) INSULN.PEN (Unknown Dose) SC TIDAC IDDM (Reported) Lactobacillus Acidophilus (Probiotic) 10 BILLION CELL CAPSULE 1 CAP PO TID SUPPLEMENT (Reported) Levothyroxine Sodium (Synthroid) 100 MCG TABLET 1 TAB PO DAILY HYPOTHYROIDISM (Reported) Linaclotide (Linzess) 145 MCG CAPSULE 1 CAP PO DAILY GI (Reported) Magnesium Oxide (Magnesium) 400 MG CAPSULE 1 CAP PO DAILY SUPPLEMENT ( Reported) Meclizine HCl 25 MG TABLET 1 TAB PO BID PRN VERTIGO (Reported) Melatonin 5 MG TABLET 1 TAB PO QPM SLEEP (Reported) Nystatin 100,000 UNIT/GRAM POWDER 1 ADELFO TOP BID RASH (Reported) Potassium Chloride 20 MEQ TAB.ER.PRT 1 TAB PO DAILY SUPPLEMENT (Reported) Pregabalin (Lyrica) 100 MG CAPSULE 1 CAP PO BID Neuropathy (Reported) Ranitidine HCl 300 MG TABLET 1 TAB PO QPM GERD (Reported) Sitagliptin Phos/Metformin HCl (Janumet 50-1,000 MG Tablet) 50 MG-1,000 MG TABLET 1 TAB PO BID IDDM (Reported) Core Measures/Misc (02/28) Sepsis (View protocol) If YES complete Sepsis Event Note If YES complete Sepsis Event Note Resident Review Statement Resident Statement: examined this patient, discussed with internet marketing analyst, agreed with internet marketing analyst, discussed with family, reviewed EMR data (avail) Other Findings: History of Present Illness 72-year-old woman with past medical history of insulin-dependent diabetes mellitus, hypertension, hyperlipidemia, hypothyroidism, anxiety, depression, obesity, and vertigo seen for evaluation of lower extremity swelling, shortness of breath, and chest pain. Patient reports gaining a significant amount of weight over the past year and is uncertain why. She recently increased her Lasix to 20 mg daily from every other day. Over the past month her legs have been progressively more swollen now with associated shortness of breath and productive cough over the past week. This afternoon patient noted chest pain in the middle/left side of her chest without radiation for which she was brought to the [place] ED for evaluation. Patient received intravenous metoprolol tartrate, full strength aspirin, 1 L normal saline, and 2 tablets of sublingual nitroglycerin which resolved her pain in the ED. Presently she is complaining of a right ankle cramp which is chronic but worse now than it has been. She is also complaining of right upper back/ shoulder pain and admits to history of shoulder injury requiring surgery. Review of systems She otherwise denies any headache, Fever, chills, lightheadedness, dizziness, current chest pain, palpitations, heartburn, current shortness of breath, nausea , vomiting, diarrhea, urinary symptoms. Objective Vitals-Temp temp 98.2-98.3, HR 97-121, RR 18-20, BP 124-165/56-77, O2 94-98% on 2.0 L Physical Exam -General: Well developed, obese elderly woman in no acute distress HEENT: NCAT, PERRL, EOMI, anicteric sclera, moist mucous membranes, nasal cannula in place -Neck: Supple, no JVD/HJR, no bruits, trachea midline, no accessory respiratory muscle use -Cardio: Normal S1/S2 without murmurs, gallops, or rub; regular rate and rhythm -Pulmonary: Clear to auscultation bilaterally -Abdomen: Soft, obese, various areas of lipodystrophy, surgical scar present, non-tender, non-distended, bowel sounds intact -Neuro: Awake and alert, CN II-XII grossly intact -Extremities: Normal pulses, 2+ bilateral lower extremity nonpitting edema (left >right) Labs / Imaging / Studies -CBC: WBC 12.2, hemoglobin 12.0, hematocrit 36.2, platelet 238 -BMP: Sodium 139, potassium 3.8, chloride 96, CO2 27, BUN 18, creatinine 0.9, anion gap 16, glucose 251 -LFT: AST 60, ALT 68, ALP 154 -Misc: Troponin I <0.01, TSH 0.696, T4 1.3, d-dimer 261, BNP 38 -UA: Unremarkable -CXR: Hypoinflation with some chronic right base markings -EKG: Sinus tachycardia with old T-wave flattening in inferior leads -Echocardiogram 09/2013: LVEF 60%, stage II diastolic dysfunction without regional wall motion abnormalities -CTA with PE protocol chest/abdomen/pelvis: * No CT evidence for pulmonary embolism. * Mild multifocal atelectasis. No consolidations. * Mild manifestations of hepatic steatosis. Status post cholecystectomy. * Right grade 1 hydronephrosis without a demonstrable obstructive calculus. * There are several pelvic phleboliths. * Sigmoid diverticulosis without evidence of diverticulitis. Assessment 72-year-old woman with multiple medical problems significant for insulin- dependent diabetes mellitus, hypertension, hyperlipidemia, and obesity seen for evaluation of progressively worsening lower extremity swelling, shortness of breath, and new chest pain. Presently patient states that she feels well after receiving sublingual nitroglycerin but is complaining of various musculoskeletal complaints. Vital signs are significant for a mildly elevated systolic blood pressure ranging 124- 165 and SPO2 94-98% on 2.0 L O2, patient is not on home oxygen. Significant labs include WBC 12.2, glucose 251, elevated LFTs, negative troponin I and d- dimer, normal thyroid function tests, and BNP 38. Clinically patient appears to have chest pain of unclear etiology; she has a normal EKG with negative troponin and no current chest pain however it did apparently improved with sublingual nitroglycerin. Given her multiple cardiovascular risk factors she does have a moderate pretest probability for underlying coronary artery disease. 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 Winters and reportedly had a normal stress test approximately 1 year ago. She is to be placed under observation on the telemetry floor for telemetry monitoring, serial troponin/EKG, and cardiology consultation. Problem list -Chest pain, unlikely acute coronary syndrome; possibly dyspepsia -worsening lower extremity swelling, likely due to diastolic heart dysfunction -leukocytosis, likely reactive; no obvious source of infection -Transaminitis, possibly due to hepatic congestion in context of diastolic dysfunction -HFpEF (LVEF 60% with stage II diastolic dysfunction 09/2013) -Insulin-dependent diabetes mellitus -Hypertension -Hyperlipidemia -Hypothyroidism -Anxiety/depression -Vertigo -Obesity Plan -Placed under observation on telemetry floor -Telemetry monitoring -Total respiratory care -Supplemental oxygen, goal >92%, taper as tolerated -Accu-Cheks 3 times daily before meals/at bedtime -Hold oral hypoglycemics -Start omeprazole 40 mg p.o. daily -Levemir 14 units SC twice dailym home dose unknown, confirm with pharmacy in AM -Continue home meds: Amlodipine, aspirin, atorvastatin, calcium/vitamin D, vitamin B12, duloxetine, iron, fish oil, Lasix, probiotic, Synthroid, Mag-Ox, melatonin, KCl, Lyrica, nystatin -Consult with cardiology for chest pain -Trend troponin/EKG until peak or 3 negative sets -Obtain transthoracic echocardiogram -Pain control with acetaminophen -Heart healthy diet -DVT prophylaxis with Lovenox -Full code Ashlyn Mccall 12/10/17 0403: Core Measures/Misc (02/28) Sepsis (View protocol) If YES complete Sepsis Event Note If YES complete Sepsis Event Note Attending MD Review Statement Attending Statement Attending MD Statement: examined this patient, discuss w/resident/PA/WHISKEY REGAUGER, agreed w/resident/PA/WHISKEY REGAUGER, discussed with family, reviewed EMR data (avail), reviewed images, amended to note Attending Assessment/Plan: CC: Chest pain PMH: DM, on insulin, HTN, HLD, hypothyroidism, anxiety, depression, obesity, vertigo, constipation Patient came to ER for fatigue complaints, cramps in her legs him a shortness of breath, chest tightness, cough with yellow colored sputum production. Patient states that her symptoms started approximately 3 days back with cramping in her legs and hands. She also had neck pain and right-sided shoulder pain. She had right shoulder pain in the past but this appears different. It was also associated with increased cough and yellow colored sputum production. Today patient noticed tightness in her chest, substernal, nonradiating, happened while she was working, relieved after nitroglycerin in ER, not associated with diaphoresis but patient endorses palpitations. Patient also has history of esophagitis. Daughter states that patient looks bloated since last 1 year, her dose of Lasix was changed from every alternate day to daily approximately a month of back. Patient denies any urinary symptoms, nausea vomiting, fever or chills. Patient follows up with Dr. Winters, last stress test was 1 year back which was unremarkable. Vitals: Temperature 98.3, pulse 121, RR 20, blood pressure 165/77, saturating 96 % on 2 L nasal cannula. On exam: A O 3, cooperative, no acute distress, neck supple, JVD normal, no lymphadenopathy, mucosa moist, no focal neurological deficit, trace leg edema, no obvious skin rashes or inflammation CVS: S1-S2, RRR. RS: Clear to auscultate bilaterally. Abdomen: Soft, NT, ND, bowel sounds present, no CVA tenderness. CXR: Hypoinflation with some chronic right base markings. This is similar to 2015. No alveolar edema or dense pneumonia CTA chest, CT abdomen pelvis with IV contrast: No CT evidence for pulmonary embolism. Mild multifocal atelectasis. No consolidations. Mild manifestations of hepatic steatosis. Status post cholecystectomy. Right grade 1 hydronephrosis without a demonstrable obstructive calculus. There are several pelvic phleboliths. Sigmoid diverticulosis without evidence of diverticulitis. Assessment and plan 72-year-old female with extensive past medical history as mentioned above presented in ER for multiple complaints. Her cough and sputum production appears to be secondary to bronchitis, chest is clear to auscultate, no wheezing. Unclear etiology for her cramping in her legs but now much better. More concerning is her chest tightness which is relieved after nitroglycerin ER. Her last stress test was 1 year back which was unremarkable. Dr. Winters was called from ER was suggested to obtain to rule out ACS. We'll obtain serial troponins and ECGs and follow Cardiology recommendations , continue aspirin. Given her tachycardia and chest pain and increased leg swelling, CTA chest was obtained which is negative for pulmonary embolism. She had history of esophagitis in the past and we will continue by mouth PPI. Patient takes 100 units of Levemir according to her, need to confirm this medication from pharmacy. Patient also has mild right hydronephrosis, unclear etiology. + Chest pain rule out ACS + Bronchitis + History of DM, on insulin, HTN, HLD, hypothyroidism, anxiety, depression, obesity, vertigo, constipation - Place in observation on telemetry - Continuous telemetry monitoring - Serial troponin and EKGs - 2-D echo in a.m. if significant increase in troponin or suggested by cardiology - Cardiology consult in a.m. - Continue aspirin, atorvastatin, beta katharina - By mouth PPI
[2017-12-10 03:50] LABS: ABSOLUTE BASOPHIL COUNT 0.1 /CUMM (0.0-0.2); ABSOLUTE EOSINOPHIL COUNT 0.4 /CUMM (0.0-0.7); ABSOLUTE LYMPH COUNT 4.8 /CUMM (1.2-3.4); ABSOLUTE MONOCYTE COUNT 0.9 /CUMM (0.10-0.60); BASOPHIL % 0.6 % (0.0-2.0); EOSINOPHIL % 3.2 % (0-5); GRANULOCYTE % 52.8 % (42.2-75.2); HEMATOCRIT 35.3 % (37-47); MEAN CORPUSCULAR HGB 28.9 PG (27.0-31.0); MEAN CORPUSCULAR HGB CONC 32.8 G/DL (33.0-37.0); MEAN CORPUSCULAR VOLUME 88.2 FL (81.0-99.0); PLATELET COUNT 206 /CUMM (130-400); RBC DISTRIBUTION WIDTH 15.8 % (11.5-14.5); RED BLOOD CELL CT 4.01 /CUMM (4.20-5.40); WHITE BLOOD CELL COUNT 13.2 /CUMM (4.8-10.8)
[2017-12-10 05:13] VITALS: BP 124/70
--- NOTE | 2017-12-10 13:01 | Discharge Summary ---
Hospital Course Allergies: Coded Allergies: codeine (Mild, STOMACH PAIN/ N/V 04/06/17) Discharge Instructions Medications at Discharge Discharge Medications: Continue taking these medications: Insulin Detemir (Levemir) (Unknown Strength) VIAL Unknown Dose Inject into fatty tissue TWICE DAILY Insulin Lispro (Humalog Kwikpen U-100) (Unknown Strength) INSULN.PEN Unknown Dose Inject into fatty tissue 3 TIMES DAILY BEFORE MEALS Sitagliptin Phos/Metformin HCl (Janumet 50-1,000 MG Tablet) 50 MG-1,000 MG TABLET 1 Tablet ORAL TWICE DAILY Ranitidine HCl (Ranitidine HCl) 300 MG TABLET 1 Tablet ORAL Every night Pregabalin (Lyrica) 100 MG CAPSULE 1 Capsule ORAL TWICE DAILY Duloxetine HCl (Duloxetine HCl) 60 MG CAPSULE.DR 1 Capsule ORAL DAILY Meclizine HCl (Meclizine HCl) 25 MG TABLET 1 Tablet ORAL TWICE DAILY as needed for VERTIGO Amlodipine Besylate (Amlodipine Besylate) 10 MG TABLET 1 Tablet ORAL DAILY Furosemide (Furosemide) 20 MG TABLET 1 Tablet ORAL DAILY Atorvastatin Calcium (Atorvastatin Calcium) 20 MG TABLET 1 Tablet ORAL DAILY Aspirin (Aspirin*) 81 MG TAB.CHEW 1 Tablet ORAL DAILY Cyanocobalamin (Vitamin B-12) 1,000 MCG TABLET 1 Tablet ORAL DAILY Potassium Chloride (Potassium Chloride) 20 MEQ TAB.ER.PRT 1 Tablet ORAL DAILY Calcium Crb&Cit/D3/Min34/Mary (Citracal + Bone Density Tablet) 300 MG-200 UNIT- 13.5 MG TABLET 1 Tablet ORAL DAILY Fish Oil/Borage/Flax/Om3,6,9#1 ([place] 3-6-9 1,200 MG Softgel) 1,200 MG CAPSULE 1 Capsule ORAL DAILY Magnesium Oxide (Magnesium) 400 MG CAPSULE 1 Capsule ORAL DAILY Lactobacillus Acidophilus (Probiotic) 10 BILLION CELL CAPSULE 1 Capsule ORAL THREE TIMES DAILY Melatonin (Melatonin) 5 MG TABLET 1 Tablet ORAL Every night Nystatin (Nystatin) 100,000 UNIT/GRAM POWDER 1 Application On the skin TWICE DAILY Ferrous Sulfate (Ferrous Sulfate) 325 MG (65 MG IRON) TABLET 1 Tablet ORAL DAILY Levothyroxine Sodium (Synthroid) 100 MCG TABLET 1 Tablet ORAL DAILY Linaclotide (Linzess) 145 MCG CAPSULE 1 Capsule ORAL DAILY
--- NOTE | 2017-12-10 13:04 | Patient Discharge Instructions ---
Discharge Instructions General Discharge Information You were seen/treated for: Atypical chest pain Watch for these problems: In case of chest pain, palpitation, nausea, vomiting, abdominal pain please go to the nearest emergency room Special Instructions: Please follow-up with your primary care provider and rn oncology clinical within 1-2 weeks of discharge. You might need a stress test in future hence follow-up with the rn oncology clinical within 1 week. Diet Continue normal diet: No Recommended Diet: Heart Healthy Activity Full Activity/No Limits: No Activity Self Limited: Yes Acute Coronary Syndrome Inclusion Criteria At DC or during hospital stay patient has or had the following: ACS DIAGNOSIS No Discharge Core Measures Meds if any: Prescribed or Continued at Discharge Meds if any: NOT Prescribed or Continued at Discharge Congestive Heart Failure Inclusion Criteria At DC or during hospital stay patient has or had the following: CHF DIAGNOSIS No Discharge Core Measures Meds if any: Prescribed or Continued at Discharge Meds if any: NOT Prescribed or Continued at Discharge Cerebrovascular accident Inclusion Criteria At DC or during hospital stay patient has or had the following: CVA/TIA Diagnosis No Discharge Core Measures Meds if any: Prescribed or Continued at Discharge Meds if any: NOT Prescribed or Continued at Discharge Venous thromboembolism Inclusion Criteria VTE Diagnosis No VTE Type NONE VTE Confirmed by (Test) NONE Discharge Core Measures - Per Current guidelines, there needs to be overlap - treatment for the first 5 days of Warfarin therapy. - If discharged on Warfarin prior to 5 days of - overlap therapy, the patient will need to be - assessed for post discharge needs including - *Post discharge parental anticoagulation - *Warfarin and/or parental anticoagulation education - *Follow up date to check INR post discharge At least 5 days overlap therapy as Inpatient No Meds if any: Prescribed or Continued at Discharge Note: Overlap Therapy is Warfarin and Anticoagulant Meds if any: NOT Prescribed or Continued at Discharge
--- NOTE | 2017-12-10 13:42 | ECHOCARDIOGRAM REPORT ---
DEWEY PEREZ Age: 72 : 1945 Gender: F Exam Date: 12/10/2017 10:18 Exam Location: [address] Ht (in): 64 Wt (lb): 230 BSA: 2.22 BP: 124 / 70 Ordering Physician: Alvino Sullivan MD Referring Physician: Alvino Sullivan MD Technologist: Michoacano Fuller [facility] Room Number: 189-2 Indications: Chest Pain Rhythm: Sinus Technical Quality: Fair FINDINGS Left Ventricle Normal global left ventricular size, wall thickness, systolic function with no obvious regional wall motion abnormalities. Left ventricular ejection fraction is estimated at >60%. Abnormal relaxation filling pattern of the left ventricle for age (stage 1 diastolic dysfunction). Right Ventricle Normal right ventricular size and function. Right Atrium Normal right atrial size. Left Atrium Normal left atrial size. Mitral Valve Structurally normal mitral valve. Trace mitral regurgitation. Aortic Valve Structurally normal trileaflet aortic valve. No aortic valve stenosis. Mild aortic regurgitation. Tricuspid Valve Structurally normal tricuspid valve. Trace tricuspid regurgitation. Pulmonic Valve Pulmonic valve not well visualized, grossly normal. No pulmonic regurgitation. Pericardium No pericardial effusion. Great Vessels Normal size aortic root. Mildly dilated inferior vena cava. CONCLUSIONS Normal global left ventricular size, wall thickness, systolic function with no obvious regional wall motion abnormalities. Left ventricular ejection fraction is estimated at >60%. Abnormal relaxation filling pattern of the left ventricle for age (stage 1 diastolic dysfunction). Normal right ventricular size and function. Normal atrial size. Trace mitral regurgitation. Mild aortic regurgitation. Trace tricuspid regurgitation. Mildly dilated inferior vena cava. Kirill Winters M.D. (Electronically Signed) Final Date: 10 December 2017 13:41 MEASUREMENTS (Male / Female) Normal Values 2D ECHO LV Diastolic Diameter PLAX 4.7 cm 4.2 - 5.9 / 3.9 - 5.3 cm LV Systolic Diameter PLAX 2.1 cm 2.1 - 4.0 cm LV Fractional Shortening PLAX 55.3 % 25 - 46 % LV Ejection Fraction 2D Teich 85.9 % IVS Diastolic Thickness 1.0 cm LVPW Diastolic Thickness 1.0 cm LV Relative Wall Thickness 0.4 RV Internal Dim ED PLAX 3.0 cm 1.9 - 3.8 cm LVOT Diameter 1.7 cm Aortic Root Diameter 2.6 cm LA Systolic Diameter LX 3.4 cm 3.0 - 4.0 / 2.7 - 3.8 cm LA Volume 23.0 cm 18 - 58 / 22 - 52 cm Ascending Aorta Diameter 2.8 cm DOPPLER AV Peak Velocity 160.0 cm/s AV Peak Gradient 10.2 mmHg AV Mean Velocity 99.4 cm/s AV Mean Gradient 5.0 mmHg AV Velocity Time Integral 31.2 cm LVOT Peak Velocity 114.0 cm/s LVOT Peak Gradient 5.2 mmHg LVOT Mean Velocity 70.8 cm/s LVOT Mean Gradient 2.0 mmHg LVOT Velocity Time Integral 25.9 cm LVOT Stroke Volume 58.8 cm AV Area Cont Eq vti 1.9 cm AV Area Cont Eq pk 1.6 cm MV Peak Velocity 120.0 cm/s MV Peak Gradient 5.8 mmHg MV Mean Velocity 68.3 cm/s MV Mean Gradient 2.0 mmHg Mitral E Point Velocity 97.7 cm/s Mitral A Point Velocity 127.0 cm/s Mitral E to A Ratio 0.8 MV PHT Velocity 102.0 cm/s MV Deceleration [place] 530.0 cm/s MV Pressure Half Time 57.7 ms MV Area PHT 3.8 cm MV Deceleration Time 141.0 ms PV Peak Velocity 113.0 cm/s PV Peak Gradient 5.1 mmHg PV Mean Velocity 72.8 cm/s PV Mean Gradient 2.0 mmHg PV Velocity Time Integral 21.3 cm
[2017-12-10 14:14] VITALS: BP 144/68
--- NOTE | 2017-12-10 14:37 | Event Note ---
Event Note Event Note: Discussed about patient discharge with Dr. Winters. He said patient can be discharged home with follow-up with him for possible stress test in future. This has been discussed with the attending and the resident.
--- NOTE | 2017-12-10 16:03 | Cons- Cardiology ---
General Information and HPI Consulting Request Date of Consult: 12/10/17 Requested By: Porter Valenzuela MD Reason for Consult: Chest discomfort. Source of Information: patient, old records Exam Limitations: poor historian, language barrier History of Present Illness: Mrs. Charleen Chino is a 72-year-old female with a history of depression, obesity, gastroesophageal reflux disease, former light tobacco use, obstructive sleep apnea, hypertension, concentric left ventricular hypertrophy with stage II diastolic dysfunction, dyslipidemia, diabetes mellitus, hypothyroidism, and previous hemodynamic instability/respiratory failure requiring brief intubation following anesthesia for arthroscopic surgery (10/05-10/08/2013) who presented to the ED on 12/09/2017 with a 3 day complaint of elevated blood glucose levels, moderate ("6/10"), nonradiating, chest heaviness with associated shortness of breath, cough productive of yellowish sputum, palpitations, and bilateral lower extremity edema. The chest discomfort was present for over an hour before spontaneously subsiding. She denied any fever, chills, abdominal discomfort, nausea, vomiting, diaphoresis, etc. Mrs. Chino denies any history of coronary, valvular, dysrhythmic/conduction disease, or cardiomyopathy. She stays active, watches her diet, and is able to perform all of her activities of daily living without assistance. Her last nuclear stress test was performed on 10/29/2015 and revealed no clinical, electrocardiographic, or nuclear evidence of ischemia. Allergies/Medications Allergies: Coded Allergies: codeine (Mild, STOMACH PAIN/ N/V 04/06/17) Home Med List: Amlodipine Besylate 10 MG TABLET 1 TAB PO DAILY HTN (Reported) Aspirin (Aspirin*) 81 MG TAB.CHEW 1 TAB PO DAILY Heart (Reported) Atorvastatin Calcium 20 MG TABLET 1 TAB PO DAILY HLD (Reported) Calcium Crb&Cit/D3/Min34/Mary (Citracal + Bone Density Tablet) 300 MG-200 UNIT- 13.5 MG TABLET 1 TAB PO DAILY SUPPLEMENT (Reported) Cyanocobalamin (Vitamin B-12) 1,000 MCG TABLET 1 TAB PO DAILY SUPPLEMENT ( Reported) Duloxetine HCl 60 MG CAPSULE.DR 1 CAP PO DAILY Depression (Reported) Ferrous Sulfate 325 MG (65 MG IRON) TABLET 1 TAB PO DAILY SUPPLEMENT ( Reported) Fish Oil/Borage/Flax/Om3,6,9#1 ([place] 3-6-9 1,200 MG Softgel) 1,200 MG CAPSULE 1 CAP PO DAILY SUPPLEMENT (Reported) Furosemide 20 MG TABLET 1 TAB PO DAILY SWELLING (Reported) Insulin Detemir (Levemir) (Unknown Strength) VIAL (Unknown Dose) SC BID IDDM (Reported) Insulin Lispro (Humalog Kwikpen U-100) (Unknown Strength) INSULN.PEN (Unknown Dose) SC TIDAC IDDM (Reported) Lactobacillus Acidophilus (Probiotic) 10 BILLION CELL CAPSULE 1 CAP PO TID SUPPLEMENT (Reported) Levothyroxine Sodium (Synthroid) 100 MCG TABLET 1 TAB PO DAILY HYPOTHYROIDISM (Reported) Linaclotide (Linzess) 145 MCG CAPSULE 1 CAP PO DAILY GI (Reported) Magnesium Oxide (Magnesium) 400 MG CAPSULE 1 CAP PO DAILY SUPPLEMENT ( Reported) Meclizine HCl 25 MG TABLET 1 TAB PO BID PRN VERTIGO (Reported) Melatonin 5 MG TABLET 1 TAB PO QPM SLEEP (Reported) Nystatin 100,000 UNIT/GRAM POWDER 1 ADELFO TOP BID RASH (Reported) Potassium Chloride 20 MEQ TAB.ER.PRT 1 TAB PO DAILY SUPPLEMENT (Reported) Pregabalin (Lyrica) 100 MG CAPSULE 1 CAP PO BID Neuropathy (Reported) Ranitidine HCl 300 MG TABLET 1 TAB PO QPM GERD (Reported) Sitagliptin Phos/Metformin HCl (Janumet 50-1,000 MG Tablet) 50 MG-1,000 MG TABLET 1 TAB PO BID IDDM (Reported) Review of Systems Review of Systems: A 14 point system review was obtained and was noncontributory, other than as above. 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 Surgical History: discectomy and fusion Family History Relations & Conditions If Any: Relation not specified for: No pertinent family history Psychosocial History Services at Home: None Primary Language: Liberian Smoking Status: Never Smoked ETOH Use: denies use Illicit Drug Use: denies illicit drug use Exam & Diagnostic Data Vital Signs and I&O Vital Signs Date Time Temp Pulse Resp B/P B/P Pulse O2 O2 Flow FiO2 Mean Ox Delivery Rate 12/10 1414 98.3 109 20 144/68 95 Room Air 12/10 1401 Room Air Room Air 12/10 0839 103 148/74 12/10 0513 98.5 94 18 124/70 92 Room Air 12/10 0502 92 Room Air Room Air 12/10 0347 98.7 98 18 133/69 97 Nasal 2.0L Cannula 12/10 0107 97 18 124/56 97 Nasal 2.0L Cannula 12/10 0102 112 155/72 12/09 2352 98.2 114 20 155/72 96 Room Air 12/09 2255 118 18 145/69 97 Room Air 12/09 2245 116 18 153/70 98 Room Air 12/09 2237 98.3 112 18 138/66 98 Room Air 12/09 2159 98 Room Air 12/09 2158 111 16 140/71 94 Room Air 12/09 2135 98.3 121 20 165/77 96 Room Air Intake & Output 12/10 1600 12/10 0800 12/10 0000 12/09 1600 12/09 0800 12/09 0000 Intake Total 650 1200 Output Total 1 Balance 650 1199 Intake, IV 1000 Intake, Oral 650 200 Output, Urine 1 Patient 161 lb 230 lb Weight Weight Reported by Patient Measurement Method Physical Exam: Well-developed, overweight elderly female in no acute distress. Vital signs: See above. HEENT: Normocephalic, atraumatic, EOMI, moist mucous membranes. Neck: No JVD, no bruits. Lungs: Clear to auscultation bilaterally. Heart: S1, S2 with no murmur, gallop, or rub. PMI fifth ICS at MCL. Abdomen: Soft, nontender, positive bowel sounds. Extremities: No edema. Diagnostic Data EKG Results 12/10/2017: Sinus rhythm and otherwise unremarkable. Minor changes when compared to previous tracing. CXR Results 12/09/2017: 1. Hypoinflation with some chronic right base markings. This is similar to 2015. 2. No alveolar edema or dense pneumonia Other Results CT chest/abdomen/pelvis 12/09/2017: 1. No CT evidence for pulmonary embolism. 2. Mild multifocal atelectasis. No consolidations. 3. Mild manifestations of hepatic steatosis. Status post cholecystectomy. 4. Right grade 1 hydronephrosis without a demonstrable obstructive calculus. 5. There are several pelvic phleboliths. 6. Sigmoid diverticulosis without evidence of diverticulitis. Echocardiogram 12/10/2017: 1. Normal global left ventricular size, wall thickness, systolic function with no obvious regional wall motion abnormalities. Left ventricular ejection fraction is estimated at >60%. Abnormal relaxation filling pattern of the left ventricle for age (stage 1 diastolic dysfunction). 2. Normal right ventricular size and function. 3. Normal atrial size. 4. Trace mitral regurgitation. Mild aortic regurgitation. Trace tricuspid regurgitation. 5. Mildly dilated inferior vena cava. Assessment/Plan Assessment/Plan [id number] w/ a hx of depression, obesity, GERD, former tobacco use, THEE, HTN, LVH w/ stage II DD, HLD, DM, hypothyroidism, & previous hemodynamic instability/ respiratory failure requiring brief intubation following anesthesia for arthroscopic surgery (10/05-10/08/2013) who presented to the ED on 12/09/2017 w/ a 3 day c/o elevated bld glucose levels, moderate ("6/10"), nonradiating, chest heaviness that lasted over an hour w/ assoc SOB, cough productive of yellowish sputum, palpitations, and bilateral LE edema whose chest discomfort resolved and to ruled out for myocardial necrosis by serial cardiac enzymes and had no acute ECG changes observed. The etiology for Mrs. Chino's chest discomfort is unclear, but does not appear to be on a cardiac basis since one would have anticipated troponin I elevation and electrocardiographic changes given the duration of the chest discomfort. Given her risk equivalent and multiple risk factors for coronary artery disease, however, it would be reasonable having her undergo an outpatient imaging stress test. Recommendations: * Ambulate while on telemetry and if remains asymptomatic with good oxygen saturation consider discharge to home for further outpatient evaluation and management. * Schedule for outpatient imaging stress test to exclude any significant ischemia. * Echocardiogram reviewed, as above. Note that wall thickness has improved since prior echocardiogram. * Continue on present cardiac regimen (amlodipine, furosemide, atorvastatin, aspirin, fish oils, etc.). Consult Acknowledgment - Thank you for your consult request.
--- NOTE | 2017-12-10 18:38 | PN- Att Addend ---
Attending Addendum Attending Brief Note 72F PMH depression, obesity, gastroesophageal reflux disease, former light tobacco use, obstructive sleep apnea, hypertension, concentric left ventricular hypertrophy with stage II diastolic dysfunction, dyslipidemia, diabetes mellitus , hypothyroidism who presented with 1 hour of 6/10 mid-sternal chest heaviness associated with shortness of breath, given risk factors was brought in under observation to rule out ACS. Serial troponin and EKG negative. Seen by cardiology. Patient asymptomatic at this time. Low suspicion for ischemic or acute coronary syndrome. Will be discharged home with outpatient cardiology follow up for stress test. Continue all home medications.
== END 2017-12-10 15:20 ==
LOC: ERH 21:29 → 1NO 12-10 00:30 → ERHI 12-10 00:30 → ENRESERV 12-10 03:44 → 1NO 12-10 04:43 → ENPENDDIS 12-10 14:38 → 1NO 12-10 15:20
PROVIDERS: Internal Medicine Interventional Cardiology; Physician Assistant
DX: R07.89 Other chest pain (principal); E78.5 Hyperlipidemia, unspecified; E66.9 Obesity, unspecified; Z87.891 Personal history of nicotine dependence; I11.0 Hypertensive heart disease with heart failure; I50.32 Chronic diastolic (congestive) heart failure; E11.9 Type 2 diabetes mellitus without complications; Z79.4 Long term (current) use of insulin; Z79.82 Long term (current) use of aspirin; G47.33 Obstructive sleep apnea (adult) (pediatric); F41.9 Anxiety disorder, unspecified; F32.9 Major depressive disorder, single episode, unspecified; G43.909 Migraine, unspecified, not intractable, without status migrainosus; D72.829 Elevated white blood cell count, unspecified; R74.0 Nonspecific elevation of levels of transaminase and lactic acid dehydrogenase [LDH]; K21.9 Gastro-esophageal reflux disease without esophagitis; Z98.1 Arthrodesis status; R42 Dizziness and giddiness; E03.9 Hypothyroidism, unspecified
CPT/HCPCS: 1255; 6020; 36592; 71045; 74177; 81003; 82436; 93005; 93010; 93306; 96372; 96374; G0378; J1650; J3490